=== PATIENT | female | born 1945 | race Caucasian/White ===

== ENCOUNTER 2023-03-14 11:14 | Outpatient (CLI) | payer MEDICARE, OTHER ==
[~2023-03-14 11:14] MED LIST: BARIUM SULFATE 340 ML SUSP.RECON***PROCEDURE AREA ONLY**DONT ENTER PO ONE
== END 2023-03-14 23:59 | disposition home or self-care (01) ==
LOC: RAD 11:14
PROVIDERS: ATTEND Surgery
DX: K44.9 Diaphragmatic hernia without obstruction or gangrene (principal)
CPT/HCPCS: 74220

== ENCOUNTER 2023-04-11 07:04 | Observation (INO) | payer BC, OTHER ==
[2023-04-06 14:44] LABS: BASOPHILS # (AUTO) 0.1 X10'3 (0-0.2); BASOPHILS % (AUTO) 0.6 % (0-1); EOSINOPHILS # (AUTO) 0.2 X10'3 (0-0.9); EOSINOPHILS % (AUTO) 1.7 % (0-6); LYMPHOCYTES # (AUTO) 2.6 X10'3 (1.1-4.8); LYMPHOCYTES % (AUTO) 28.1 % (21-51); MEAN CORPUSCULAR HEMOGLOBIN 27.6 PG (27.0-31.0); MEAN CORPUSCULAR HGB CONC 33.2 g/dL (33.0-36.5); MEAN CORPUSCULAR VOLUME 83.2 FL (78-98); MEAN PLATELET VOLUME 8.6 FL (7.4-10.4); MONOCYTES # (AUTO) 0.6 X10'3 (0-0.9); MONOCYTES % (AUTO) 6.6 % (2-12); NEUTROPHILS # (AUTO) 5.8 X10'3 (1.8-7.7); PRE OP HEMATOCRIT 38.4 % (35.0-45.0); PRE OP HEMOGLOBIN 12.7 g/dL (12.0-16.0); PRE OP PLATELET COUNT 293 X10'3 (140-440); PRE OP WHITE BLOOD COUNT 9.2 10'3 (4.8-10.8); RED BLOOD COUNT 4.61 X10'6 (4.20-5.60); RED CELL DISTRIBUTION WIDTH 14.5 % (11.5-14.5)
[2023-04-06 14:59] LABS: ALBUMIN 3.8 G/DL (3.4-5.0); ALBUMIN/GLOBULIN RATIO 0.9 (1.1-1.5); ALKALINE PHOSPHATASE 50 IU/L (46-116); BLOOD UREA NITROGEN 19 MG/DL (7-18); BUN/CREATININE RATIO 21.8 (10.0-20.0); CALCIUM 9.3 MG/DL (8.5-10.1); CHLORIDE 106 MMOL/L (99-107); CREATININE 0.87 MG/DL (0.40-0.90); PRE OP ALT 14 U/L (30-65); PRE OP ANION GAP 7 (8-16); PRE OP AST 17 U/L (10-37); PRE OP BILIRUB, TOTAL 0.3 MG/DL (0.0-1.0); PRE OP GLUCOSE 101 MG/DL (70-104); PRE OP POTASSIUM 3.9 MMOL/L (3.4-5.1); PRE OP SODIUM 142 MMOL/L (135-145); TOTAL CARBON DIOXIDE 28.6 MMOL/L (24-32); TOTAL PROTEIN 7.9 G/DL (6.4-8.2); eGFR 63 ML/MIN
[~2023-04-11] VITALS: Ht 162.6 cm; Wt 68.0 kg
[2023-04-11] VITALS (41 sets, daily range): BP systolic 122–190; BP diastolic 57–92; PULSE 51–100; RESP 13–20; TEMP 97.9–98.3; O2SAT 93–100
[~2023-04-11 07:04] MED LIST changes: +ALEN70TA31 PO; -BARIUM SULFATE 340 ML SUSP.RECON***PROCEDURE AREA ONLY**DONT ENTER PO ONE; +BUPIVAcaine/PF 2.5mg/ml (0.25%) 10ml vial ONE; +LIDOcaine 1% (10mg/ml)w/preservative inj. 20ml MDV ONE; +LIDOcaine 1% 30ml preserv. free vial ONE; +LISI10TA27 PO; +OMEP40CA21 PO; +PRAV40TA3 PO; +[UNRECOGNIZED DRUG - OTHER] PO; +cefazolin 2gm/D5W 100mL 100 ML IV ONE; +famotidine 20mg tablet PO ONE; +ringers solution, lacted 1,000 ML IV SCH
[2023-04-11] MEDS ORDERED: fentaNYL/PF 50MCG/1 ML 2ML syringe ONE ×2 (09:49→10:27)
[2023-04-11] MEDS ORDERED: ondansetron/PF 4mg/2ml inj IV PRN ×2 (09:50→12:00)
[2023-04-11] MEDS ORDERED: morphine 2 MG/ML inj. syringe IV PRN ×2 (09:50→20:35)
[2023-04-11] MEDS ORDERED: ringers solution, lacted 1,000 ML IV SCH ×2 (09:50→18:05)
[2023-04-11] MEDS ORDERED: acetaminophen 1,000mg/100ml IV 100 ML IV ONE ×2 (10:07→10:10)
[2023-04-11] MEDS ORDERED: ondansetron/PF 4mg/2ml inj ONE (10:07)
[2023-04-11] MEDS ORDERED: propofol inj 20 ML IV ONE (10:07)
[2023-04-11] MEDS ORDERED: LIDOcaine 2% (20mg/ml) 5ml vial ONE (10:07)
[2023-04-11] MEDS ORDERED: rocuronium 10mg/ml inj IV ONE (10:07)
[2023-04-11] MEDS ORDERED: dexamethasone sod phosphate 4mg/ml inj. ONE (10:07)
[2023-04-11] MEDS ORDERED: BUPIVAcaine/PF 2.5mg/ml (0.25%) 10ml vial IJ ONE (10:12)
[2023-04-11] MEDS ORDERED: LIDOcaine 1% 30ml preserv. free vial IJ ONE (10:13)
[2023-04-11] MEDS ORDERED: sugammadex 200mg/2ml injection IV ONE (11:40)
[2023-04-11] MEDS ORDERED: naloxone 0.4 mg/ml inj IV PRN (12:00)
[2023-04-11] MEDS ORDERED: labetalol 20mg/4ml (5mg/ml) syringe IV PRN (12:05)
[2023-04-11] MEDS ORDERED: labetalol 20mg/4ml (5mg/ml) syringe IV ONE (12:07)
[2023-04-11] MEDS: fentaNYL/PF 50MCG/1 ML 2ML syringe IV PRN ×2 (12:17→14:02)
[2023-04-11] MEDS: oxyCODONE/APAP 5-325mg tablet PO PRN ×2 (15:08→19:43)
[2023-04-11] MEDS ORDERED: PER5325T PO (15:34)
[2023-04-11] MEDS ORDERED: ZOF4I IV (15:34)
[2023-04-11] MEDS ORDERED: LidoCAINE 2% Topical Jelly 11mL syringe TOP ONE (17:45)
[2023-04-12 02:00] VITALS: BP 111/56; PULSE 88; RESP 16; TEMP 97.9; O2SAT 95
[2023-04-12 07:40] VITALS: RESP 18
[2023-04-12] MEDS: oxyCODONE/APAP 5-325mg tablet PO PRN (09:42)
[2023-04-12 10:00] VITALS: BP 176/76; PULSE 86; RESP 16; TEMP 98; O2SAT 98
[2023-04-12 10:40] VITALS: RESP 18
== END 2023-04-12 13:50 | disposition home or self-care (01) ==
LOC: PAS 07:04 → ORTHO 4S 17:42
PROVIDERS: ADMIT Surgery; ATTEND Surgery
DX: K44.9 Diaphragmatic hernia without obstruction or gangrene (principal); K21.9 Gastro-esophageal reflux disease without esophagitis; R16.0 Hepatomegaly, not elsewhere classified; I10 Essential (primary) hypertension; M81.0 Age-related osteoporosis without current pathological fracture; Z79.899 Other long term (current) drug therapy
CPT/HCPCS: 36415; 43282; 47379; 71045; 80053; 82948; 85025; 87081; 93005; 96374; 96375; 96376; C1781; G0378; J0131; J0690; J1100; J2270; J2405; J2704; J3010; J3490; J7120; A4314; A4615; A4618